=== PATIENT | male | born 1935 | race Caucasian/White ===

== ENCOUNTER → 2017-02-27 | Outpatient (CLI) | payer BC ==
[~2017-02-27] MED LIST: ALLDSR/24 PO; AMOX500C3 PO; ASPEC81 PO; FLUT0.15 NAE; IBUP-1450 PO; LISI5TAB3 PO; PRLSR20 PO
[2017-02-27 15:02] LABS: ESTIMATED AVERAGE GLUCOSE 137 mg/dl; HA1C FLAG Normal (Normal)
== END | disposition home or self-care (01) ==
LOC: C.LAB1850 12:35
PROVIDERS: ATTEND Urology
DX: R73.01 Impaired fasting glucose (principal); N40.0 Benign prostatic hyperplasia without lower urinary tract symptoms; C61 Malignant neoplasm of prostate

== ENCOUNTER → 2017-07-20 | Outpatient (CLI) | payer BC ==
[2017-07-20 16:22] LABS: BASO % 0.5 %; BASO ABS # 0.05 K/uL (0-0.2); COMPLETE YES; EOS % 2.7 %; HEMATOCRIT 44.8 % (42-52); IG% 0.6 %; LYMPH % 20.7 %; LYMPH ABS # 1.91 K/uL (1.2-3.4); MEAN CELL VOLUME 92.6 fL (80-100); MEAN CORPUSCULAR HEMOGLOBIN 31.8 pg (25-34); MEAN CORPUSCULAR HGB CONC 34.4 g/dl (32-36); MEAN PLATELET VOLUME 9.8 fL (7.4-10.4); MONO % 6.7 %; NEUT % 68.8 %; PLATELET COUNT 195 K/uL (130-400); RED BLOOD COUNT 4.84 M/uL (4.7-6.1); WHITE BLOOD COUNT 9.24 K/uL (4.8-10.8)
[2017-07-20 16:44] LABS: ALT/SGPT 21 U/L (12-78); BLOOD UREA NITROGEN 21 mg/dl (7-18); BUN/CREATININE RATIO 17.6 (10-20); CALCIUM 9.2 mg/dl (8.5-10.1); CARBON DIOXIDE 22 mmol/L (21-32); CHLORIDE 107 mmol/L (98-107); GLUCOSE 113 mg/dl (70-99); POTASSIUM 3.9 mmol/L (3.5-5.1); SODIUM 140 mmol/L (136-145)
[2017-07-20 16:55] LABS: ALB/GLOB RATIO 1.3 (0.9-2); ALKALINE PHOSPHATASE 77 U/L (45-117); AST/SGOT 16 U/L (15-37)
[2017-07-20 17:49] LABS: LYME DISEASE AB IGG NEG (NEG)
[2017-07-20 17:51] LABS: LYME DISEASE AB IGM NEG (NEG)
== END | disposition home or self-care (01) ==
LOC: C.LAB1850 15:01
PROVIDERS: ATTEND Internal Medicine Pulmonary Disease
DX: R29.898 Other symptoms and signs involving the musculoskeletal system (principal); R53.83 Other fatigue

== ENCOUNTER → 2017-10-13 | Outpatient (CLI) | payer BC ==
--- NOTE | 2017-10-13 11:08 | DIAGNOSTIC IMAGING REPORT ---
L-SPINE MIN 4 VIEWS ROUTINE CLINICAL HISTORY: Back pain and lower extremity weakness COMPARISON STUDY: 07/08/2015 FINDINGS: No acute fractures are visualized. There are progressive multilevel advanced degenerative changes with multilevel disc space narrowing and osteophyte formation. There are no significant subluxations. Prostate seed implants are visualized. IMPRESSION: Progressive advanced multilevel degenerative change. No acute fractures. Electronically signed by: Nazario Sanders M.D. 10/13/2017 11:06 AM Dictated Date/Time: 10/13/2017 11:04 AM
== END | disposition home or self-care (01) ==
LOC: C.RAD1850 10:30
PROVIDERS: ATTEND Physician Assistant Medical
DX: M51.36 Other intervertebral disc degeneration, lumbar region (principal)

== ENCOUNTER → 2017-10-28 | Outpatient (CLI) | payer BC ==
--- NOTE | 2017-10-29 06:05 | PAP/PSG TECHNICIAN REPORT ---
[facility] Farm Equipment Assembler Polysomnogram Report Study name: None Report date: 10/29/2017 Study date: 10/28/2017 Referring Physician: Rocio Escalona PA-C Name: AL SAMAYOA Interpreting Physician: Bautista Vitale M.D. Date of : 1935 Farm Equipment Assembler: Melissa Fitzgerald, PSGT. Sex: Male Age: 82 StudyType: PSG Weight: 189 lbs Height: 82 years, Height 5' 7" Neck Circum:15 inches BMI: 29.6 Medications: VERA D, PRILOSEC 20 MG, ASPIRIN 81 MG, LISINOPRIL 5 MG, METOPROLOL 25 MG, NASALIDE SPRAY. Patient History 82 YR. OLD MALE, PRESENTS WITH CHRONIC FATIGUE, HIP, BACK AND LEG PAIN.HE ALSO SNORES.ESS=16, NECK=15 INCHES. Parameters Monitored NPSG: E1-M2, E2-M1, Fp1-M2, Fp2-M1, F3-M2, F4-M2, F4-M1, C3-M2, C4-M2, C4-M1, O1-M2, O2-M2, O2-M1, T3-M2, T4-M1, P3-M2, P4-M1, CHIN1, CHIN2, HR, EKG, Legs, PFLOW, SNOR, FLOW, CFLOW, Tidal Volume, THOR, ABDO, SpO2, PLTH, CPRESS, ETCO2 Wave, ETCO2, pH Sleep Architecture Sleep Stages Time at Lights Off 11:04:05 PM STAGES Time (min.) TST (%) Time at Lights On 5:32:35 AM Wake 79.0 -- Total Recording Time (TRT) 389.50 min. N1 47.0 15 Total Sleep Period (TSP) 368.0 min. N2 196.0 63 Total Sleep Time (TST) 309.5min. N3 0.0 0 Awake Time 79.0 min. REM 66.5 21 Wake after Sleep Onset 58.5 min. Sleep Efficiency (SE) 80 % Sleep Onset Latency (FARRUKH) 20.5 min. Number of Stage 1 Shifts None Awakenings 17 Stage Changes 58 Number of REM periods 4 REM 66.5 21 REM Latency 81.5 min. NREM 243.0 79 Body Position Analysis Supine Right Left Side Prone Vertical Total Sleep Time (min.) 167.0 181.6 0.0 181.62 0.0 19.8 Total Sleep Time (%) 41% 59% 0% 59 0% N/A% Total Sleep Time REM (min.) 27.4 39.1 0.0 None 0.0 0.0 Total Sleep Time NREM (min.) 100.5 142.5 0.0 None 0.0 0.0 Intermittent Wake (min.) 39.1 19.7 0.0 None 0.0 19.8 Total Sleep Period (%) 45% None None None None None Arousals Myoclonus (PLM) * Events Count Index Events Count Index Spontaneous 90 17 Events Awake (PLMW) 0 0.0 Respiratory 7 1.4 Events Asleep w/ Arousal (PLMA) 27 5.2 PLM 27 5 Events Asleep w/o Arousal (PLMS) 367 71.1 Snoring 22 4 Total Asleep 394 76.4 Total 146 28 Total 394 61 Respiratory Analysis * CA OA MA CH H RERA Total Count 0 4 0 0 13 0 17 Index 0.0 0.8 0.0 0 2.5 0 3.3 Mean Duration 0.0 28.0 0.0 0.00 20.4 0.0 22.2 Longest Duration 0.0 31.1 0.0 0.00 0.0 0.0 31.1 Respiratory Event Summary Total Supine ~Supine Right Left Prone REM NREM Apneas Count 4 4 0 0 N/A N/A 0 4 Index 0.8 2 0 0.0 N/A N/A 0 1 Hypopneas (4% Desat) Count 13 12 1 1 N/A N/A 4 9 Index 2.5 5.6 0 0.3 N/A N/A 3.6 2.2 Apneas & All Hypopneas Count 17 16 1 1 N/A N/A 4 13 Index 3.3 8 0 0 N/A N/A 3.6 3.2 Respiratory Events (Meat Selector+All Hyp+RERA) Count 17 16 1 1 N/A N/A 4 13 Index 3.3 8 0 0.3 N/A N/A 3.6 3.2 Respiratory Related Arousal Count 7 16 0 0 N/A N/A 0 7 Index 1.4 3 0 0 N/A N/A 0 2 Snoring Analysis Supine Right Left Prone REM NREM Total Snore duration 29.5 min Snores count 342 971 N/A N/A 75 1,238 1,313 Snore mean duration 1.3 Sec Snores index 160 321 N/A N/A 67.7 305.7 254.5 TST with snoring (%) 9.5% Desaturation Event Summary: Minimum %SpO2 Event Count Mean/Min/Max Duration(sec.) Desaturation Index % Time In Bed > 90 39 32.0 / 17.3 / 60.0 6.6 93.0 86 - 90 3 19.3 / 17.3 / 22.5 6.9 6.9 81 - 85 0 N/A 0.0 0.1 76 - 80 0 N/A 0.0 0.0 71 - 75 0 N/A 0.0 0.0 66 - 70 0 N/A 0.0 0.0 61 - 65 0 N/A 0.0 0.0 56 - 60 0 N/A 0.0 0.0 51 - 55 0 N/A 0.0 0.0 < 50 0 N/A 0.0 0.0 Total REM NREM Awake <50% 0.0 min. 0.0 min. 0.0 min. 0.0 min. 51 - 60% 0.0 min. 0.0 min. 0.0 min. 0.0 min. 61 - 70% 0.0 min. 0.0 min. 0.0 min. 0.0 min. 71 - 80% 0.1 min. 0.0 min. 0.0 min. 0.1 min. 81 - 90% 26.4 min. 7.6 min. 14.0 min. 4.7 min. 91 - 100% 353.6 min. 58.9 min. 227.2 min. 67.5 min. Average 92 92 92 92 Minimum SpO2 77 87 86 77 Desaturation Event Index 6.2 10.8 6.9 0.0 # Desat. Events below 89% 7 1 6 N/A Time(%) with Saturation below 89% 0.5 0.2 0.2 0.1 Time(min.) with Saturation below 89% 1.8 0.7 0.8 0.3 Time (mins) REM (mins) NREM (mins) % of TST SpO2 Below 90% 26 5 N21 1.8 SpO2 Below 88% 3 0 0 0 Heart Rate Analysis Min (bpm) Max (bpm) Average (bpm) Awake 74 214 80 NREM 48 87 78 REM 70 94 79 Overall 48 94 78 Supplemental O2 Values Minimum O2 level: None Value Start Time End Time Farm Equipment Assembler Comments PSG Study Mr. Samayoa slept in the right, and supine positions. No cardiac arrhythmia or PLM's noted. No bruxism noted. Snoring was noted and scored as a one on a scale of 1 through 5. (0=no snoring, 5=snoring loud enough to be heard through a closed door or down the [address]) Mr. Samayoa awoke to use the restroom one time during the night. Mr. Samayoa stated, I did not sleep as well as I do when I am in my own bed. The final report will be interpreted and signed by a sleep physician. The completed physician report will then be placed in the patient medical record. Therapy (cm H2O) 0 TIB (min.) 388.5 TST (min.) 309.5 Sleep Onset (min.) 20.5 REM Onset From Sleep (min.) 81.5 Sleep Efficiency % 80 Wakefulness (%) 20 Wakefulness (min.) 79.0 NREM 1 (%) 15 NREM 1 (min.) 47.0 NREM 2 (%) 63 NREM 2 (min.) 196.0 NREM 3 (%) 0 NREM 3 (min.) 0.0 REM (%) 21 REM (min.) 66.5 # Arousals 146 Arousal Index 28 # Snore 1,313 Snore Index 254.5 AHI 3.3 AHI Supine 8 AHI Non-Supine 0 NREM AHI 3.2 REM AHI 3.6 RDI 3.3 # Obstructive Apnea 4 # Central Apnea 0 # Mixed Apnea 0 # Hypopneas 13 RERAs 0 Total Respiratory Events 17 Time Below SpO2 89% (min.) 1.5 Mean NREM SpO2 (%) 92 Mean REM SpO2 (%) 92 Mean Sleep SpO2 (%) 92 Min NREM SpO2 (%) 86 Min REM SpO2 (%) 87 Position Supine (min.) 167.0 Position Non-supine (min.) 181.6 LM Index Sleep 76.4 LM Index NREM 85.7 LM Index REM 42.4 Mean Heart Rate (bpm) 78 Min Heart Rate (bpm) 48
--- NOTE | 2017-10-29 16:12 | POLYSOMNOGRAPH REPORT ---
CLINICAL DATA: An 82-year-old male with a BMI of 29.6, referred by Rocio Escalona and myself with chronic fatigue, hip, back and leg pain and snoring. His [place] sleepiness score is 16/24. SLEEP ARCHITECTURE: Total sleep period was 368 minutes. Total sleep time was 309.5 minutes divided between grade 243 minutes of non-REM sleep and 66.5 minutes of REM sleep. Sleep onset latency was 20.5 minutes. REM latency was 81.5 minutes. Sleep efficiency was 80%. Wake after sleep onset was 58.5 minutes. Sleep consisted of stage N1 15%, stage N2 63%, and REM 21%. AROUSAL DATA: One hundred and forty six arousals were recorded for an index of 28 per hour. PERIODIC LIMB MOVEMENT DATA: Significantly elevated limb movements during sleep were noted. There were 394 limb movements during sleep noted for an index of 76.4 per hour with arousal index of 5.3 per hour. RESPIRATORY DATA: There was no evidence of clinically significant sleep apnea seen. The AHI was 3.3. There were 4 obstructive apneic episodes. The longest duration of apnea was 31.1 seconds. There were 13 hypopneic episodes with a mean duration of 20.4 seconds. OXIMETRY DATA: Transient hypoxemia was seen. Oxygen hesham was 86% during non-REM sleep. The mean saturation was 92%. Time below 88% was 3 minutes. ECHOCARDIOGRAM: Heart rate ranged from 48-94 beats per minute. No arrhythmias were noted. IT SECURITY MANAGER'S COMMENTS: The patient slept in the right and supine positions. Snoring was moderate, rated 1 on a scale of 1-5. IMPRESSION: 1. No evidence of clinically significant sleep apnea/hypopnea or sustained nocturnal hypoxemia. 2. Frequent limb movements during sleep with arousal consistent with periodic limb movement disorder/ leg pain. RECOMMENDATIONS: The patient may need to be treated for his chronic pain to relieve his symptoms at night. There was nothing to suggest CPAP or BIPAP will be of benefit. Treatment for PLMD may be considered. Clinical correlation is needed. DIEGOD
== END | disposition home or self-care (01) ==
LOC: C.NEUR 21:00
PROVIDERS: ATTEND Physician Assistant Medical
DX: R53.83 Other fatigue (principal); R06.83 Snoring

== ENCOUNTER → 2017-11-18 | Outpatient (CLI) | payer BC | END | disposition home or self-care (01) | LOC: C.LAB1850 13:24 | PROVIDERS: ATTEND Physician Assistant Medical | DX: G47.61 Periodic limb movement disorder (principal) ==

== ENCOUNTER 2017-12-24 19:37 | Observation (INO) | payer BC ==
[~2017-12-24] VITALS: Ht 170.2 cm; Wt 83.0 kg
[2017-12-24] MEDS ORDERED: SODIUM CHLORIDE 0.9% 1000ML 1,000 ML IV SCH (20:10)
--- NOTE | 2017-12-24 20:28 | DIAGNOSTIC IMAGING REPORT ---
HEAD WITHOUT CONTRAST (CT) CLINICAL HISTORY: 82 years-old Male presenting with Stroke. TECHNIQUE: Multidetector CT imaging of the head was performed without the use of intravenous contrast. IV contrast: None. A dose lowering technique was used consistent with the principles of ALARA (as low as reasonably achievable). COMPARISON: None. CT DOSE (mGy.cm): The estimated cumulative dose is 614.27 mGy.cm. FINDINGS: Textile Technologist topogram: Unremarkable. Proportional ventricular and sulcal prominence, likely age-related parenchymal volume loss. Periventricular and subcortical white matter hypoattenuation, nonspecific but likely indicative of chronic small vessel ischemic change. No mass effect or midline shift. No hemorrhage or acute territorial infarct. No extra-axial fluid collection. Paranasal sinuses and mastoid air cells clear. Calvarium intact. Bilateral [place] lenses are absent. IMPRESSION: 1. No acute intracranial abnormality. Electronically signed by: Rakesh Mckeon M.D. 12/24/2017 8:26 PM Dictated Date/Time: 12/24/2017 8:25 PM
[2017-12-24 20:37] LABS: BASO % 0.5 %; BASO ABS # 0.04 K/uL (0-0.2); EOS % 4.9 %; EOS ABS # 0.42 K/uL (0-0.5); HEMATOCRIT 44.3 % (42-52); HEMOGLOBIN 15.5 g/dL (14.0-18.0); IG# 0.06 K/uL (0.00-0.02); LYMPH % 30.7 %; LYMPH ABS # 2.63 K/uL (1.2-3.4); MEAN CELL VOLUME 91.7 fL (80-100); MEAN CORPUSCULAR HEMOGLOBIN 32.1 pg (25-34); MEAN PLATELET VOLUME 9.5 fL (7.4-10.4); MONO % 9.9 %; MONO ABS # 0.85 K/uL (0.11-0.59); NEUT % 53.3 %; NEUT ABS # 4.58 K/uL (1.4-6.5); PLATELET COUNT 171 K/uL (130-400); RED CELL DISTRIBUTION WIDTH CV 13.1 % (11.5-14.5); WHITE BLOOD COUNT 8.58 K/uL (4.8-10.8)
[2017-12-24 20:53] LABS: BLOOD UREA NITROGEN 18 mg/dl (7-18); CARBON DIOXIDE 25 mmol/L (21-32); CREATININE 1.11 mg/dl (0.60-1.40); GLUCOSE 108 mg/dl (70-99); POTASSIUM 3.9 mmol/L (3.5-5.1); SODIUM 138 mmol/L (136-145)
[2017-12-24 20:58] LABS: CKMB 2.5 ng/ml (0.5-3.6)
--- NOTE | 2017-12-24 21:04 | DIAGNOSTIC IMAGING REPORT ---
CHEST ONE VIEW PORTABLE CLINICAL HISTORY: 82 years-old Male presenting with Stroke. TECHNIQUE: Portable upright AP view of the chest was obtained. COMPARISON: 07/18/2015. FINDINGS: Left subclavian pacer with leads to the right atrium and right ventricular apex. Median sternotomy wires unchanged. Suggestion of an epicardial or coronary sinus lead. Atherosclerosis of the aortic arch. Persistent eventration of the left hemidiaphragm. No focal opacity. No large effusion or pneumothorax. Osseous structures normal. Hiatal hernia suspected. IMPRESSION: 1. No acute cardiopulmonary disease. Electronically signed by: Rakesh Mckeon M.D. 12/24/2017 9:02 PM Dictated Date/Time: 12/24/2017 9:01 PM
[2017-12-24] MEDS ORDERED: CLOPIDOGREL BISULFATE 300 MG TAB PO STA (21:06)
[2017-12-24] MEDS ORDERED: FAMOTIDINE 20 MG TAB ONE (21:17)
[2017-12-24] MEDS ORDERED: TPRSR/25 PO ×2 (21:18)
[2017-12-24] MEDS ORDERED: FRRS300 PO ×2 (21:18)
[2017-12-24] MEDS ORDERED: CETI10TA84 PO ×2 (21:18)
[2017-12-24] MEDS ORDERED: XLTOPS OPR ×2 (21:19)
[2017-12-24] MEDS ORDERED: CLOPIDOGREL BISULFATE 75 MG TAB PO ONE (21:30)
[2017-12-24] MEDS ORDERED: ALUMINUM/MAGNESIUM/SIMETH (MAALOX MAX) 30 ML UDC PO PRN (21:30)
[2017-12-24] MEDS ORDERED: PHARMACIST DISCHARGE MED REC CONSULT PRN (21:30)
[2017-12-24] MEDS ORDERED: MAGNESIUM HYDROXIDE SUSP 30 ML UDC PO PRN (21:30)
[2017-12-24] MEDS ORDERED: POLYETHYLENE (MIRALAX) 17 GM PACK PO PRN (21:30)
[2017-12-24] MEDS ORDERED: MoRPHine SULFATE 2 MG/ML CARP IV PRN (21:30)
[2017-12-24] MEDS ORDERED: ACETAMINOPHEN 325 MG TAB PO PRN (21:30)
[2017-12-24] MEDS ORDERED: ONDANSETRON INJ 2 MG/ML 2 ML VIAL IV PRN (21:30)
[2017-12-24 21:39] LABS: PTT PATIENT 26.6 SECONDS (21.0-31.0)
--- NOTE | 2017-12-24 21:48 | History and Physical ---
History & Physical Date & Time of Service: Dec 24, 2017 at 21:31 Chief Complaint: No Speech Primary Care Physician: Bautista Vitale M.D. History of Present Illness Source: patient, hospital records 82 y/o M hx HTN, HPL, AV block-pacer placement 2014, - 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 Presents with acute onset of expressive aphasia. He states that while he was unable to speak, he could clearly comprehend others. The pt states that he has some chronic numbness in his L extremities distally and impaired L dorsiflexion which are chronic and related to nerve entrapment per pt. He denies CP, SOB, fevers. He denies acute unilateral weakness or sensory loss and denies a headache or visual disturbances. He has gradually regained his speech. 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 Surgical 1) Inguinal hernia 1999 2) Cataract R 2010 3) AVR - bioprosthesis 2008 Family History Diabetes mellitus FH: cancer FH: heart disease Hypertension Social History Smoking Status: Never Smoker Marital Status: Occupational Status: employed Allergies Coded Allergies: Statins (Verified Adverse Reaction, Intermediate, GALLBLADDER PAIN, 12/24/17 ) Home Medications Scheduled Aspirin Enteric Coated (Ecotrin Or Generic *), 81 MG PO QAM Cetirizine (Zyrtec), 10 MG PO DAILY Ferrous Sulfate (Ferrous Sulfate), 325 MG PO QAM Fluticasone Propionate (Nasal) (Flonase Allergy Relief), 25 MCG KRISTEL QPM Latanoprost (Latanoprost), 1 DROP OPR HS Lisinopril (Zestril), 5 MG PO QAM Metoprolol Succinate (Metoprolol Succinate ER), 25 MG PO QAM Omeprazole (Prilosec), 2 TAB PO QAM Scheduled PRN Amoxicillin (Amoxil), 2,000 MG PO DAILY PRN for PRIOR TO DENTAL APPT. Review of Systems Constitutional: No fever, No chills, No sweats Eyes: No worsening of vision ENT: No hearing loss, No unusual epistaxis, No nasal symptoms Respiratory: No cough, No sputum, No wheezing Cardiovascular: No chest pain, No orthopnea, No PND Abdomen: No pain, No nausea, No vomiting Musculoskeletal: No joint pain Genitourinary - Male: No hematuria, No dysuria Neurologic: + problem reported (Acute expressive aphasia - chronic distal ext numbness and LLE wekaness), No memory loss Psychiatric: No depression symptoms Endocrine: No fatigue Hematologic / Lymphatic: No abnormal bleeding/bruising Integumentary: No rash Allergic / Immunologic: No environmental allergies Physical Exam Vital Signs Date Time Temp Pulse Resp B/P (MAP) Pulse Ox O2 Delivery O2 Flow Rate FiO2 12/24/17 21:00 67 19 116/85 95 Room Air 12/24/17 20:44 66 12/24/17 20:30 70 15 133/77 97 Room Air 12/24/17 20:30 65 14 149/79 96 Room Air 12/24/17 20:25 96 Room Air 12/24/17 19:46 36.4 78 18 166/6 95 Room Air General Appearance: WD/WN, no apparent distress Head: normocephalic Eyes: normal inspection ENT: normal ENT inspection, pharynx normal Neck: supple, no JVD Respiratory/Chest: chest non-tender, lungs clear, normal breath sounds Cardiovascular: regular rate, rhythm, no edema, no gallop, + systolic murmur Abdomen/GI: normal bowel sounds, non tender, soft Back: normal inspection, no CVA tenderness Extremities/Musculoskelatal: normal inspection, no calf tenderness, normal capillary refill Neurologic/Psych: ragman II-XII nml as tested, no motor/sensory deficits, alert, + pertinent finding (Speech is slightly slow - may have slight diffficulty with word finding - dorsiflexion impaired on L ) Skin: normal color, warm/dry Diagnostics Laboratory Results Results Past 24 Hours Test 12/24/17 20:13 12/24/17 20:26 12/24/17 20:29 12/24/17 21:02 Range/Units Bedside Glucose 100 70-99 mg/dl White Blood Count 8.58 4.8-10.8 K/uL Red Blood Count 4.83 4.7-6.1 M/uL Hemoglobin 15.5 14.0-18.0 g/dL Hematocrit 44.3 42-52 % Mean Corpuscular Volume 91.7 80-100 fL Mean Corpuscular Hemoglobin 32.1 25-34 pg Mean Corpuscular Hemoglobin Concent 35.0 32-36 g/dl Platelet Count 171 130-400 K/uL Mean Platelet Volume 9.5 7.4-10.4 fL Neutrophils (%) (Auto) 53.3 % Lymphocytes (%) (Auto) 30.7 % Monocytes (%) (Auto) 9.9 % Eosinophils (%) (Auto) 4.9 % Basophils (%) (Auto) 0.5 % Neutrophils # (Auto) 4.58 1.4-6.5 K/uL Lymphocytes # (Auto) 2.63 1.2-3.4 K/uL Monocytes # (Auto) 0.85 0.11-0.59 K/uL Eosinophils # (Auto) 0.42 0-0.5 K/uL Basophils # (Auto) 0.04 0-0.2 K/uL RDW Standard Deviation 44.0 36.4-46.3 fL RDW Coefficient of Variation 13.1 11.5-14.5 % Immature Granulocyte % (Auto) 0.7 % Immature Granulocyte # (Auto) 0.06 0.00-0.02 K/uL Sodium Level 138 136-145 mmol/L Potassium Level 3.9 3.5-5.1 mmol/L Chloride Level 106 98-107 mmol/L Carbon Dioxide Level 25 21-32 mmol/L Anion Gap 8.0 3-11 mmol/L Blood Urea Nitrogen 18 7-18 mg/dl Creatinine 1.11 0.60-1.40 mg/dl Est Creatinine Clear Calc Drug Dose 51.6 ml/min Estimated GFR () 70.3 Estimated GFR (Non- 60.7 BUN/Creatinine Ratio 16.2 10-20 Random Glucose 108 70-99 mg/dl Calcium Level 9.0 8.5-10.1 mg/dl Magnesium Level 2.1 1.8-2.4 mg/dl Total Creatine Kinase 81 39-308 U/L Creatine Kinase MB 2.5 0.5-3.6 ng/ml Creatine Kinase MB Ratio 3.1 0-3.0 Troponin I < 0.015 0-0.045 ng/ml Bedside Prothrombin Time INR 1.0 0.9-1.[address] head: No acute abnormalities EKG V-pacing 65 BPM Impression Assessment and Plan 82 y/o M hx HTN, HPL, AV block-pacer placement 2014, - 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 Presents with acute onset of expressive aphasia. He states that while he was unable to speak, he could clearly comprehend others. The pt states that he has some chronic numbness in his L extremities distally and impaired L dorsiflexion which are chronic and related to nerve entrapment per pt. He denies CP, SOB, fevers. He denies acute unilateral weakness or sensory loss and denies a headache or visual disturbances. He has gradually regained his speech. 1) CVA/TIA - appears to be recovering speech - assigned to telemetry with neurochecks per CVA protocol - will cont ASA and add Plavix - MRI/MRA, echo, neurology consult pending. Antihypertensives held for AM. 2) HTN - meds held as above - he is normotensive on admission so it may be reasonable to cont his B rafael AM 3) HPL - pt is statin intolerant 4) AVR - echo ordered due to history of valve replacement Full code - Heparin prophylaxis Total time for this admit including review of labs, meds, imaging, records, EKG - discussioin with pt and ER attending - 38 min Resuscitation Status VTE Prophylaxis Will order VTE Prophylaxis: Yes
[2017-12-24 22:32] VITALS: BP 155/78; PULSE 66; TEMP 36.8; O2SAT 97; Ht 170.2 cm; Wt 83.0 kg
[2017-12-24 22:45] VITALS: BP 155/75; PULSE 70; TEMP 36.8; O2SAT 96
[2017-12-24] MEDS ORDERED: D5NSS + 20MEQ KCL 1,000 ML IV SCH (23:30)
--- NOTE | 2017-12-25 00:33 | EMERGENCY ROOM VISIT NOTE ---
History Report prepared by Azael: Donavan Worthy Under the Supervision of: Dr. Raheem Lemon M.D. First contact with patient: 20:04 Chief Complaint: OTHER COMPLAINT Stated Complaint: NO SPEECH History of Present Illness The patient is an 82 year old male who presents to the Emergency Room with complaints of sudden inability to speak starting around 1900 tonight. The patient states that he was able to understand people around him, though he was unable to get any words out and was mumbling. He notes that it is getting better , and he can talk slowly. The patient denies any history of TIA and stroke. The patient has a history of a pacemaker and valve replacement, and he is not on any blood thinners other than a baby aspirin. He additionally notes that he has had numbness in his left hand and left foot for the past few months, and he has spinal stenosis. He also notes that he is unable to dorsiflex his left foot as much as the right foot which is chronic and likely secondary to spinal stenosis. His only new neurologic complaint today is his difficulty speaking. Source of History: patient Onset: 1899 Position: other (global) Quality: other (inability to speak) Timing: other (sudden) Associated Symptoms: No headache Note: Associated symptoms: Able to understand words though unable to get words out. Review of Systems See HPI for pertinent positives & negatives. A total of 10 systems reviewed and were otherwise negative. Past Medical & Surgical Medical Problems: (1) Aphasia (2) Asthma (3) CVA (cerebral vascular accident) (4) Pacemaker (5) Prostate cancer (6) Skin cancer (7) Stomach problems Family History Diabetes mellitus FH: cancer FH: heart disease Hypertension Social History Smoking Status: Never Smoker Marital Status: Housing Status: lives with family Occupation Status: employed Current/Historical Medications Scheduled Aspirin Enteric Coated (Ecotrin Or Generic *), 81 MG PO QAM Cetirizine (Zyrtec), 10 MG PO DAILY Ferrous Sulfate (Ferrous Sulfate), 325 MG PO QAM Fluticasone Propionate (Nasal) (Flonase Allergy Relief), 25 MCG KRISTEL QPM Latanoprost (Latanoprost), 1 DROP OPR HS Lisinopril (Zestril), 5 MG PO QAM Metoprolol Succinate (Metoprolol Succinate ER), 25 MG PO QAM Omeprazole (Prilosec), 2 TAB PO QAM Scheduled PRN Amoxicillin (Amoxil), 2,000 MG PO DAILY PRN for PRIOR TO DENTAL APPT. Allergies Coded Allergies: Statins (Verified Adverse Reaction, Intermediate, GALLBLADDER PAIN, 12/24/17 ) Physical Exam Vital Signs Date Time Temp Pulse Resp B/P (MAP) Pulse Ox O2 Delivery O2 Flow Rate FiO2 12/24/17 21:16 61 19 146/78 96 Room Air 12/24/17 21:00 67 19 116/85 95 Room Air 12/24/17 20:50 65 14 149/79 96 Room Air 12/24/17 20:44 66 12/24/17 20:30 70 15 133/77 97 Room Air 12/24/17 20:25 96 Room Air 12/24/17 19:46 36.4 78 18 166/6 95 Room Air Physical Exam Constitutional: Vital signs reviewed. Eyes: Pupils are equal round reactive to light. Conjunctiva are noninjected. ENT: Pharynx is clear without erythema or exudate. Mucous membranes are moist. Neck supple without meningeal signs. Respiratory: Clear to auscultation bilaterally. Breath sounds are equal bilaterally. Cardiovascular: Regular rate and rhythm. No rubs or gallops. GI: Soft, nondistended and nontender. Bowel sounds are present. Musculoskeletal: No peripheral edema. No lower extremity tenderness. Integumentary: No cyanosis. Neurological: The patient is awake and alert. Cranial nerves II-XII are intact. Motor is 5 out of 5 all extremities, 4/5 strength with dorsiflexion in the left foot with diminished sensation in the left foot. Sensation is intact to light touch all extremities except the left foot as described above. Mild expressive aphasia. No pronator drift. No limb ataxia. NIH score of 2 Psychiatric: Normal affect. Medical Decision & Procedures ER Provider Diagnostic Interpretation: Radiology results as stated below per my review and the radiologist's interpretation: HEAD WITHOUT CONTRAST (CT) CLINICAL HISTORY: 82 years-old Male presenting with Stroke. TECHNIQUE: Multidetector CT imaging of the head was performed without the use of intravenous contrast. IV contrast: None. A dose lowering technique was used consistent with the principles of ALARA (as low as reasonably achievable). COMPARISON: None. CT DOSE (mGy.cm): The estimated cumulative dose is 614.27 mGy.cm. FINDINGS: Aba Tutor topogram: Unremarkable. Proportional ventricular and sulcal prominence, likely age-related parenchymal volume loss. Periventricular and subcortical white matter hypoattenuation, nonspecific but likely indicative of chronic small vessel ischemic change. No mass effect or midline shift. No hemorrhage or acute territorial infarct. No extra-axial fluid collection. Paranasal sinuses and mastoid air cells clear. Calvarium intact. Bilateral [place] lenses are absent. IMPRESSION: 1. No acute intracranial abnormality. Electronically signed by: Rakesh Mckeon M.D. 12/24/2017 8:26 PM Dictated Date/Time: 12/24/2017 8:25 PM CHEST ONE VIEW PORTABLE CLINICAL HISTORY: 82 years-old Male presenting with Stroke. TECHNIQUE: Portable upright AP view of the chest was obtained. COMPARISON: 07/18/2015. FINDINGS: Left subclavian pacer with leads to the right atrium and right ventricular apex. Median sternotomy wires unchanged. Suggestion of an epicardial or coronary sinus lead. Atherosclerosis of the aortic arch. Persistent eventration of the left hemidiaphragm. No focal opacity. No large effusion or pneumothorax. Osseous structures normal. Hiatal hernia suspected. IMPRESSION: 1. No acute cardiopulmonary disease. Electronically signed by: Rakesh Mckeon M.D. 12/24/2017 9:02 PM Dictated Date/Time: 12/24/2017 9:01 PM Laboratory Results 12/24/17 20:26 Red Blood Count 4.83, Mean Corpuscular Volume 91.7, Mean Corpuscular Hemoglobin 32.1, Mean Corpuscular Hemoglobin Concent 35.0, Mean Platelet Volume 9.5, Neutrophils (%) (Auto) 53.3, Lymphocytes (%) (Auto) 30.7, Monocytes (%) (Auto) 9.9, Eosinophils (%) (Auto) 4.9, Basophils (%) (Auto) 0.5, Neutrophils # (Auto) 4.58, Lymphocytes # (Auto) 2.63, Monocytes # (Auto) 0.85, Eosinophils # (Auto) 0.42, Basophils # (Auto) 0.04 12/24/17 20:26 Test 12/24/17 20:13 12/24/17 20:26 12/24/17 20:29 12/24/17 21:02 Bedside Glucose 100 mg/dl (70-99) White Blood Count 8.58 K/uL (4.8-10.8) Red Blood Count 4.83 M/uL (4.7-6.1) Hemoglobin 15.5 g/dL (14.0-18.0) Hematocrit 44.3 % (42-52) Mean Corpuscular Volume 91.7 fL (80-100) Mean Corpuscular Hemoglobin 32.1 pg (25-34) Mean Corpuscular Hemoglobin Concent 35.0 g/dl (32-36) Platelet Count 171 K/uL (130-400) Mean Platelet Volume 9.5 fL (7.4-10.4) Neutrophils (%) (Auto) 53.3 % Lymphocytes (%) (Auto) 30.7 % Monocytes (%) (Auto) 9.9 % Eosinophils (%) (Auto) 4.9 % Basophils (%) (Auto) 0.5 % Neutrophils # (Auto) 4.58 K/uL (1.4-6.5) Lymphocytes # (Auto) 2.63 K/uL (1.2-3.4) Monocytes # (Auto) 0.85 K/uL (0.11-0.59) Eosinophils # (Auto) 0.42 K/uL (0-0.5) Basophils # (Auto) 0.04 K/uL (0-0.2) RDW Standard Deviation 44.0 fL (36.4-46.3) RDW Coefficient of Variation 13.1 % (11.5-14.5) Immature Granulocyte % (Auto) 0.7 % Immature Granulocyte # (Auto) 0.06 K/uL (0.00-0.02) Anion Gap 8.0 mmol/L (3-11) Est Creatinine Clear Calc Drug Dose 51.6 ml/min Estimated GFR () 70.3 Estimated GFR (Non- 60.7 BUN/Creatinine Ratio 16.2 (10-20) Calcium Level 9.0 mg/dl (8.5-10.1) Magnesium Level 2.1 mg/dl (1.8-2.4) Total Creatine Kinase 81 U/L (39-308) Creatine Kinase MB 2.5 ng/ml (0.5-3.6) Creatine Kinase MB Ratio 3.1 (0-3.0) Troponin I < 0.015 ng/ml (0-0.045) Bedside Prothrombin Time INR 1.0 (0.9-1.1) Prothrombin Time 10.5 SECONDS (9.0-12.0) Prothromb Time International Ratio 1.0 (0.9-1.1) Activated Partial Thromboplast Time 26.6 SECONDS (21.0-31.0) Partial Thromboplastin Ratio 1.0 Laboratory results as reviewed by me. Medications Administered Medications (Trade) Dose Ordered Sig/Alayna Route Start Time Stop Time Status Last Admin Dose Admin Sodium Chloride 1,000 ml @ 50 mls/hr Q20H IV 12/24/17 20:10 12/24/17 23:14 DC 12/24/17 20:48 50 MLS/HR Clopidogrel Bisulfate (plAVix TAB) 300 mg NOW STAT PO 12/24/17 21:06 12/24/17 21:07 DC 12/24/17 21:24 300 MG Famotidine (Pepcid Tab) 20 mg STK-MED ONCE .ROUTE 12/24/17 21:17 12/24/17 21:18 DC 12/24/17 21:24 20 MG ECG Per My Interpretation Indication: other (stroke symptoms) Rate (beats per minute): 65 Rhythm: other (Atrial sensed ventricularly paced) Findings: other (QRS is 194. R [place] is -69) ED Course 2003: The patient was evaluated in room C12. A complete history and physical exam was performed. 2009: Sodium Chloride 1000 ml @ 50 mls/hr IV 2017: I reevaluated the patient, and I discussed the risks and benefits of TPA. He is off to CT scan. 2026: I discussed the patient's case with Dr. Teddy Hester Stroke Neurology, and he is going to evaluate the patient. 2039: The patient is having mild to moderate persistent speech deficits. I again addressed the TPA, and he will consider it depending on what Dr. Espinal says. 2105: The patient's speech has improved, and Dr. Espinal recommended not giving IV TPA due to his significant rapid improvement. He recommended Plavix 300 and hospitalization for further work up. I ordered Plavix 300mg PO. 2116: Pepcid Tab 20mg PO 2135: I discussed the patient's case with Dr. Jay, and he talked to Dr. Macie Braswell [facility] Hospitalist. They will evaluate the patient for further management. Medical Decision This is an 82-year-old male who presents with difficulty speaking. Differential diagnosis includes expressive aphasia, CVA, TIA, intracranial hemorrhage, intracranial mass, metabolic derangement. I did perform a limited focused review of portions of the patient's old chart on the electronic medical record. The patient has had no recent pertinent visits to this hospital. I did evaluate the patient as noted above. After specimen I immediately called a stroke alert. IV access was established. The patient was placed on a continuous hospital monitor. I did order and personally review the patient's 12- lead EKG and chest x-ray as described above. I did order and review the patient 's blood work as noted in the electronic medical record. I did order a stat CT of the head. I did review the images myself as well as the radiology report as described above. No acute intracranial abnormality was noted. I did reassess the patient multiple times. His symptoms seem to be improving progressively. He had a significant improvement since the initiation of the symptoms where he could only mumble. I did discuss risks and benefits of IV TPA with the patient and his family. I did discuss the case with the [facility] neurologist on-call. He did evaluate the patient via telemedicine. He agreed that IV TPA was not indicated due to his very rapidly improvement of his symptoms. He did recommend IV fluids and Plavix. I did treat him with normal saline IV and Plavix 300 mg. I did discuss case with the hospitalist service and casework supervisor. Medication Reconcilliation Current Medication List: was personally reviewed by me Blood Pressure Screening Patient's blood pressure: Elevated blood pressure Monitored by the hospitalist. Consults Time Called: 2022 Consulting Physician: Dr. Espinal Returned Call: 2026 I discussed the patient's case with Dr. Espinal - [facility], and he is going to evaluate the patient. Additional Consults: Time Called: 2105 Consulted Physician: Dr. Jay Returned Call: 2135 Additional Comments: I discussed the patient's case with Dr. Jay, and he talked to Dr. Macie Braswell [facility] Hospitalist. They will evaluate the patient for further management. Impression Primary Impression: Expressive aphasia Scribe Attestation The scribe's documentation has been prepared under my direct and personally reviewed by me in its entirety. I confirm that the note above accurately reflects all work, treatment, procedures, and medical decision making performed by me. Departure Information Dispostion Being Evaluated By Hospitalist Referrals Bautista Vitale M.D. (PCP) Patient Instructions My [facility] Stroke History Time Last Known Well 1900 Stroke t-PA Criteria Reviewed Does NOT meet criteria for t-PA Reason t-PA Not Given Treatment not indicated Strict Exclusion Criteria Complete resolution of symptoms (NI (Near resolution of symptoms)
[2017-12-25] MEDS ORDERED: OPTIRAY 320 IV PRN (01:15)
[2017-12-25] MEDS ORDERED: IV FLUIDS COMPLETED PRN (01:45)
[2017-12-25 02:08] LABS: ISTAT IONIZED CALCIUM 1.13 mmol/l (1.12-1.32); ISTAT POTASSIUM 3.9 mEq/L (3.3-5.0)
[2017-12-25 04:46] VITALS: BP 129/62; PULSE 60; TEMP 36.7; O2SAT 95
[2017-12-25 06:07] LABS: BASO % 0.7 %; BASO ABS # 0.05 K/uL (0-0.2); EOS % 6.5 %; EOS ABS # 0.45 K/uL (0-0.5); HEMATOCRIT 40.9 % (42-52); HEMOGLOBIN 14.2 g/dL (14.0-18.0); IG# 0.04 K/uL (0.00-0.02); LYMPH % 29.8 %; LYMPH ABS # 2.06 K/uL (1.2-3.4); MEAN CELL VOLUME 91.7 fL (80-100); MEAN CORPUSCULAR HEMOGLOBIN 31.8 pg (25-34); MEAN CORPUSCULAR HGB CONC 34.7 g/dl (32-36); MEAN PLATELET VOLUME 9.3 fL (7.4-10.4); MONO % 8.8 %; MONO ABS # 0.61 K/uL (0.11-0.59); NEUT % 53.6 %; NEUT ABS # 3.71 K/uL (1.4-6.5); PLATELET COUNT 163 K/uL (130-400); RED CELL DISTRIBUTION WIDTH CV 13.3 % (11.5-14.5); RED CELL DISTRIBUTION WIDTH SD 44.1 fL (36.4-46.3); WHITE BLOOD COUNT 6.92 K/uL (4.8-10.8)
--- NOTE | 2017-12-25 06:39 | DIAGNOSTIC IMAGING REPORT ---
HEAD ANGIO WITH CONTRAST CLINICAL HISTORY: Mental status change TECHNIQUE: Transaxial acquisition with multi axial reformatted images. COMPARISON STUDY: None FINDINGS: All major intracranial vasculature is unremarkable. No major stenotic or aneurysmal process. All major structures the anterior middle and posterior cerebral circulation are intact. Moderate atelectatic changes present. IMPRESSION: 1. Moderate atherosclerotic change. 2. No evidence for a major stenotic or aneurysmal process. The above report was generated using voice recognition software. It may contain grammatical, syntax or spelling errors. Electronically signed by: Efren Oneill M.D. 12/25/2017 6:38 AM Dictated Date/Time: 12/25/2017 6:37 AM
[2017-12-25 06:41] LABS: CALCIUM 8.3 mg/dl (8.5-10.1); CREATININE 1.02 mg/dl (0.60-1.40); POTASSIUM 3.8 mmol/L (3.5-5.1)
[2017-12-25 06:59] LABS: HEMOGLOBIN A1C 6.2 % (4.5-5.6)
[2017-12-25 07:21] VITALS: BP 124/71; PULSE 66; TEMP 36.8; O2SAT 93
--- NOTE | 2017-12-25 07:21 | DIAGNOSTIC IMAGING REPORT ---
CAROTID ARTERY ULTRASOUND CLINICAL HISTORY: Cerebrovascular accident. COMPARISON STUDY: None. TECHNIQUE: Real-time, grayscale, and color Doppler sonography of the carotid and vertebral arteries was performed. Images were viewed in the transverse and longitudinal planes. FINDINGS: There is mild atherosclerotic plaque. Velocity measurements are listed below. COMMON CAROTID PEAK SYSTOLIC VELOCITY (CM/S): RIGHT 84 LEFT 92 ICA PEAK SYSTOLIC VELOCITY (CM/S): RIGHT 81 LEFT 100 Systolic ratios between the internal to common carotid arteries are normal. Antegrade flow is seen in the vertebral arteries. The external carotid arteries are patent. Blood pressure could not be obtained in this patient due to limb restriction. Incidental note is made of several thyroid nodules within the right lobe. These were closely apposed. IMPRESSION: No evidence of a hemodynamically significant stenosis. Electronically signed by: Vinny Lebron M.D. 12/25/2017 7:20 AM Dictated Date/Time: 12/25/2017 7:16 AM
--- NOTE | 2017-12-25 07:30 | DIAGNOSTIC IMAGING REPORT ---
CT ANGIOGRAPHY OF THE NECK WITH CONTRAST CLINICAL HISTORY: Cerebrovascular accident. COMPARISON STUDY: No previous studies for comparison. Technique: CT angiography of the carotid and vertebral arteries was obtained using [employer] 320 IV and 3D reconstruction on an independent workstation. NASCET criteria was utilized. A dose lowering technique was utilized adhering to the principles of ALARA. CT DOSE: 556.94 mGy.cm Findings: There is no significant stenosis within the bilateral common carotid or internal carotid arteries. There is mild plaque. There is no dissection within these vessels. The left vertebral artery is dominant and patent. The right vertebral artery is somewhat diminutive but patent. There is no dissection within the bilateral vertebral arteries. The CTA of the head will be reported separately. The lung apices are clear. Several right lobe thyroid nodules are noted, including a 2 cm right lobe nodule. IMPRESSION: No significant stenosis within the bilateral common carotid or internal carotid arteries. Mild atherosclerotic plaque. No dissection. Electronically signed by: Vinny Lebron M.D. 12/25/2017 7:29 AM Dictated Date/Time: 12/25/2017 7:20 AM
[2017-12-25] MEDS: HEPARIN SOD 5000 UNIT/0.5 ML CARP SQ SCH ×2 (07:49→13:34)
[2017-12-25] MEDS ORDERED: CETIRIZINE HCL 10 MG TAB PO SCH (09:00)
[2017-12-25] MEDS ORDERED: ASPIRIN 81 MG ECTAB PO SCH ×2 (09:00)
[2017-12-25] MEDS ORDERED: CLOPIDOGREL BISULFATE 75 MG TAB PO SCH (09:00)
[2017-12-25] MEDS ORDERED: METOPROLOL SUCC 25MG EXT REL TAB PO SCH (09:00)
--- NOTE | 2017-12-25 10:30 | Neurology Consultation ---
Neurology Consultation Date of Consultation: Dec 25, 2017. Attending Physician: Sonu Quijano M.D. Primary Care Physician: Bautista Vitale M.D. Reason for Consultation: Patient is an 82-year-old, was asked to see the request of Dr. Quijano, for neurologic consultation regarding TIA versus stroke. History of Present Illness Source: patient, caregiver, clinic records, hospital records This patient has a longstanding cardiac history with coronary artery disease, nonischemic cardiomyopathy, aortic valve replacement in 2008 (bioprosthetic valve), and Mobitz type 2 block requiring pacemaker in 2014. There is also a history of atrial fibrillation in the past. He is followed closely by Cardiology. He takes a baby aspirin tablet daily, for years This patient does not have any history of migraines or stroke in the past. He denies hypertension or diabetes. He does have some history of dyslipidemia but he cannot tolerate statins (significant side effects) I saw this patient in July of 2017 for an EMG and nerve conduction study of his legs. He had a mild underlying polyneuropathy and mild, bilateral L5 radiculopathy. Following this, he went to see Dr. Butterfield, chiropractor, with helped his back and legs considerably. He really does not have back pain so much anymore and he has a little bit of residual weakness and numbness in the left foot. This affects his gait and he limps some. Patient was in his usual state of health yesterday, December 24. He had naps some in the afternoon, got up around 4 in the afternoon and then did his usual exercises to about 5 o'clock. He was at his computer to about 7 o'clock in the evening. He then got up to go with his and watch the news when he had the sudden onset of decreased ability to get words out. He knew what he wanted to say he could not form words. He would mumble or makes sounds. He was perfectly aware of what was going on and had no confusion or memory problems. He had no vision issues of a new nature and had no swallowing problems. He had no chest pain or palpitations, lightheadedness or dizziness, or any new weakness, numbness, or pain in the limbs. He arrived to the emergency room December 24 at 1946 hours with a temperature of 36.4, pulse 78, respiratory rate 18, and blood pressure 166/66. Evaluation revealed that he had some mild expressive aphasia. He also had left foot weakness and numbness, but (again) this is old. CT scan of the head was unremarkable. Chest x-ray was unremarkable. His symptoms improved considerably and by 1-2 hours (from the onset of symptoms ) his speech problem resolved. TPA was considered but not given because of his rapidly improving symptoms. CT angiography of the head neck were unremarkable with no significant stenoses. Carotid ultrasound was unremarkable. CBC, Chem profile, CK, lipid profile all were unremarkable. This morning the patient feels that he may have some slightly slurred speech but he has no new symptoms and feels quite back to baseline. He has no pain or headache. 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 Past Medical/Surgical History Medical Problems: (1) Expressive aphasia Status: Acute Coronary artery disease History of atrial fibrillation in the past Post pacemaker installed 2014 for Mobitz type 2 block Nonischemic cardiomyopathy History of asthma History of prostate cancer History of dyslipidemia and statin intolerance. Post aortic valve replacement in 2008 with bioprosthetic valve Inguinal hernia repair 1999 Cataract surgery bilaterally 2010 Remote history of nasal septal defect repair Family History Mother in her late 60s of liver disease. Father age 70 of colon cancer Social History The patient never used tobacco products. He has had various consumption of alcohol over time but currently has 1 glass of wine per day. 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 Smoking Status: Never smoker Smokeless Tobacco Use: No Alcohol Use: Drug Use: none Marital Status: Housing Status: lives with family Occupation Status: retired Allergies Coded Allergies: Statins (Verified Adverse Reaction, Intermediate, GALLBLADDER PAIN, 12/24/17 ) Current Inpatient Medications Current Inpatient Medications Medications (Trade) Dose Ordered Sig/Alayna Route Start Time Stop Time Status Last Admin Dose Admin Clopidogrel Bisulfate (plAVix TAB) 75 mg QAM PO 12/25/17 09:00 01/24/18 08:59 12/25/17 07:48 75 MG Miscellaneous Information (Pharmacist Discharge Med Rec Consult) 1 ea UD PRN N/A 12/24/17 21:30 01/23/18 21:29 Heparin Sodium (Porcine) (Heparin Sq 5000 Unit/0.5ml) 5,000 unit Q8H SQ 12/25/17 06:00 01/24/18 05:59 12/25/17 07:49 5,000 UNIT Acetaminophen (Tylenol Tab) 650 mg Q4H PRN PO 12/24/17 21:30 01/23/18 21:29 Al Hydrox/Mg Hydrox/Simethicone (Maalox Max Susp) 15 ml Q4H PRN PO 12/24/17 21:30 01/23/18 21:29 Magnesium Hydroxide (Milk Of Magnesia Susp) 30 ml Q12H PRN PO 12/24/17 21:30 01/23/18 21:29 Ondansetron HCl (Zofran Inj) 4 mg Q6H PRN IV 12/24/17 21:30 01/23/18 21:29 Morphine Sulfate (MoRPHine SULFATE INJ) 2 mg Q30M PRN IV 12/24/17 21:30 01/07/18 21:29 Polyethylene (Miralax Powder Packet) 17 gm DAILY PRN PO 12/24/17 21:30 01/23/18 21:29 Aspirin (Ecotrin Tab) 81 mg QAM PO 12/25/17 09:00 01/24/18 08:59 12/25/17 07:50 81 MG Cetirizine HCl (zyrTEC TAB) 10 mg DAILY PO 12/25/17 09:00 01/24/18 08:59 12/25/17 07:50 10 MG Latanoprost (Xalatan Oph Soln) 1 drops HS OPR 12/25/17 21:00 01/24/18 20:59 Metoprolol Succinate (Toprol Xl Tab) 25 mg QAM PO 12/25/17 09:00 01/24/18 08:59 12/25/17 07:50 25 MG Non-Formulary Medication (Omeprazole (Prilosec)) 2 tab QAM PO 12/25/17 09:00 01/24/18 08:59 UNV Potassium Chloride/Dextrose/ Sod Cl 1,000 ml @ 80 mls/hr [id number] IV 12/24/17 23:30 12/25/17 11:59 12/25/17 00:03 80 MLS/HR Ioversol (Optiray 320) 100 ml UD PRN IV 12/25/17 01:15 12/29/17 01:14 Miscellaneous (Iv Fluids Completed) 1 ea PRN PRN N/A 12/25/17 01:45 12/25/18 01:44 Review of Systems Constitutional: + weakness, No fever, No fatigue Eyes: No worsening of vision, No diplopia ENT: + hearing loss, No tinnitus Respiratory: No cough, No shortness of breath Cardiovascular: No chest pain Abdomen: No pain, No nausea Musculoskeletal: No joint pain, No muscle pain Genitourinary - Male: + urinary incontinence, No dysuria Neurologic: + weakness, + numbness/tingling, + balance problems, No memory loss Psychiatric: No depression symptoms Endocrine: No fatigue Hematologic / Lymphatic: + abnormal bleeding/bruising Integumentary: No rash Allergic / Immunologic: No hives Physical Exam Vital Signs (Past 24 Hrs): Date Time Temp Pulse Resp B/P (MAP) Pulse Ox O2 Delivery O2 Flow Rate FiO2 12/25/17 08:00 Room Air 12/25/17 07:21 36.8 66 17 124/71 (88) 93 Room Air 12/25/17 04:46 36.7 60 17 129/62 (84) 95 Room Air 12/25/17 04:00 Room Air 12/25/17 00:00 Room Air 12/24/17 22:45 36.8 70 18 155/75 (101) 96 Room Air 12/24/17 22:32 36.8 66 20 155/78 97 Room Air 12/24/17 22:02 67 14 175/77 97 12/24/17 21:36 62 12 152/74 95 Room Air 12/24/17 21:16 61 19 146/78 96 Room Air 12/24/17 21:00 67 19 116/85 95 Room Air 12/24/17 20:50 65 14 149/79 96 Room Air 12/24/17 20:44 66 12/24/17 20:30 70 15 133/77 97 Room Air 12/24/17 20:25 96 Room Air 12/24/17 19:46 36.4 78 18 166/6 95 Room Air Patient is right-handed. The patient is awake and alert. Speech is normal without aphasia or dysarthria. Mentation and thought processes are intact with orientation and normal fund of knowledge. Mood and affect are normal and appropriate. Appearance and grooming are normal. Long and short-term memory seem intact to conversation. The disc is difficult to visualize on the right but the left seem sharp. Pupils are 3mm bilaterally and reactive to light. Extraocular eye muscles are intact without nystagmus. Visual acuity and visual hargrove seem normal grossly to confrontation in the left eye. He cannot see out of his right eye. There are no deficits to sensation of the face bilaterally. Corneal reflexes are positive bilaterally. Facial strength and symmetry is normal bilaterally. Hearing seems mildly decreased bilaterally. Palate moves well without asymmetry. There is normal sternocleidomastoid and trapezius strength bilaterally. Tongue is midline with good strength bilaterally. Neck is with full range of motion without discomfort. There are no cervical bruits. There are no cranial or ocular bruits. Heart is without murmur. Cervical, thoracic, and lumbar spine are nontender to palpation. Gait is cautious and he limps because of his left leg. Stance with eyes open is reasonable and he sways with eyes closed With outstretched arms there is no drift. There are no resting, postural, or action tremors. There is no ataxia with [id number] testing. There is good facility in the hands. There are no abnormal involuntary movements noted. 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 Motor strength is 5/5 diffusely in the legs bilaterally including hip flexors, quadriceps, hamstring, gastrocnemius, tibialis posterior, and peroneii muscles bilaterally. The right tibialis anterior is 5/5 in the left is 4/5. Toe extensors are 5/5 on the right and 4/5 on the left. there is good bulk in the extensor digitorum brevis muscle bilaterally. The limbs have good tone without rigidity or spasticity, and there is no atrophy noted. Muscle bulk is normal, there is no tenderness, no myotonia noted to percussion, and no fasciculations seen. Sensory examination is intact to pin and touch throughout all four limbs, except for some decreased sensation of the dorsum of the left foot Reflexes are 1/4 in the biceps, triceps, brachioradialis, and quadriceps tendons bilaterally. Achilles tendon reflexes are absent bilaterally. Toes are downgoing with plantar stimulation bilaterally. Peripheral pulses are present and of normal quality distally in all four limbs. There is no peripheral edema noted. Laboratory Results Past 24 Hours: 12/25/17 05:30 Red Blood Count 4.46, Mean Corpuscular Volume 91.7, Mean Corpuscular Hemoglobin 31.8, Mean Corpuscular Hemoglobin Concent 34.7, Mean Platelet Volume 9.3, Neutrophils (%) (Auto) 53.6, Lymphocytes (%) (Auto) 29.8, Monocytes (%) (Auto) 8.8, Eosinophils (%) (Auto) 6.5, Basophils (%) (Auto) 0.7, Neutrophils # (Auto) 3.71, Lymphocytes # (Auto) 2.06, Monocytes # (Auto) 0.61, Eosinophils # (Auto) 0.45, Basophils # (Auto) 0.05 12/25/17 05:30 Test 12/24/17 20:26 12/24/17 20:29 12/24/17 20:32 12/24/17 21:02 Estimated Average Glucose 131 mg/dl Hemoglobin A1c 6.2 % (4.5-5.6) Magnesium Level 2.1 mg/dl (1.8-2.4) Total Creatine Kinase 81 U/L (39-308) Creatine Kinase MB 2.5 ng/ml (0.5-3.6) Creatine Kinase MB Ratio 3.1 (0-3.0) Troponin I < 0.015 ng/ml (0-0.045) Bedside Prothrombin Time INR 1.0 (0.9-1.1) Bedside Hemoglobin 15.0 g/dl (14.0-18.0) Bedside Hematocrit 44 % (42-52) Bedside Sodium 140 mEq/L (135-144) Bedside Potassium 3.9 mEq/L (3.3-5.0) Bedside Chloride 102 mEq/L (101-112) Bedside Total CO2 24 mEq/l (24-31) Bedside Blood Urea Nitrogen 20 mg/dl (7-18) Bedside Creatinine 1.0 mg/dl (0.6-1.3) Bedside Glucose (other) 112 mg/dl (70-99) Bedside Ionized Calcium (Ofelia) 1.13 mmol/l (1.12-1.32) Prothrombin Time 10.5 SECONDS (9.0-12.0) Prothromb Time International Ratio 1.0 (0.9-1.1) Activated Partial Thromboplast Time 26.6 SECONDS (21.0-31.0) Partial Thromboplastin Ratio 1.0 Test 12/25/17 05:30 12/25/17 07:38 White Blood Count 6.92 K/uL (4.8-10.8) Red Blood Count 4.46 M/uL (4.7-6.1) Hemoglobin 14.2 g/dL (14.0-18.0) Hematocrit 40.9 % (42-52) Mean Corpuscular Volume 91.7 fL (80-100) Mean Corpuscular Hemoglobin 31.8 pg (25-34) Mean Corpuscular Hemoglobin Concent 34.7 g/dl (32-36) Platelet Count 163 K/uL (130-400) Mean Platelet Volume 9.3 fL (7.4-10.4) Neutrophils (%) (Auto) 53.6 % Lymphocytes (%) (Auto) 29.8 % Monocytes (%) (Auto) 8.8 % Eosinophils (%) (Auto) 6.5 % Basophils (%) (Auto) 0.7 % Neutrophils # (Auto) 3.71 K/uL (1.4-6.5) Lymphocytes # (Auto) 2.06 K/uL (1.2-3.4) Monocytes # (Auto) 0.61 K/uL (0.11-0.59) Eosinophils # (Auto) 0.45 K/uL (0-0.5) Basophils # (Auto) 0.05 K/uL (0-0.2) RDW Standard Deviation 44.1 fL (36.4-46.3) RDW Coefficient of Variation 13.3 % (11.5-14.5) Immature Granulocyte % (Auto) 0.6 % Immature Granulocyte # (Auto) 0.04 K/uL (0.00-0.02) Anion Gap 7.0 mmol/L (3-11) Est Creatinine Clear Calc Drug Dose 55.6 ml/min Estimated GFR () 77.9 Estimated GFR (Non- 67.2 BUN/Creatinine Ratio 17.3 (10-20) Calcium Level 8.3 mg/dl (8.5-10.1) Triglycerides Level 74 mg/dl (0-150) Cholesterol Level 143 mg/dl (0-200) HDL Cholesterol 35 mg/dl LDL Cholesterol, Calculated 93 mg/dl VLDL Cholesterol, Calculated 15 mg/dl Cholesterol/HDL Ratio 4.1 Bedside Glucose 115 mg/dl (70-99) Impression 1. Acute onset expressive aphasia December 24 resolved by 1-2 hours. This is most consistent with a TIA since he does not have any neurologic deficits currently and is any ache stroke scale is 0 (the very mild left foot weakness and numbness is consistent with his old left L5 radiculopathy). Although an embolus cannot be excluded (cardiac valve replacement and history of cardiac dysrhythmia) I suspect an ischemic event. MRI of the brain cannot be obtained because of his pacemaker, which is not MRI compatible. 2. Left foot weakness and numbness. This is consistent with his left L5 radiculopathy, noted by EMG in July of 2017. 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 3. Generalized polyneuropathy of uncertain etiology seen by EMG July 2017. This is stable. Plan 1. Awaiting echocardiogram results. 2. If we can get an MRI I would like 1, although I understand that his pacemaker is not MRI compatible. 3. Otherwise I see no need for additional testing at this time. He is back to his baseline clinically. 4. Agree with 81 milligram aspirin +70 5 milligrams clopidogrel daily for at least 2-3 months. After this, discontinue the aspirin and keep clopidogrel alone (if okay with Cardiology also) Otherwise, please contact me if I can be of further assistance on this case. I spent a total of 60 minutes with this case including records review discussion with clinicians and staff and direct patient evaluation.
[2017-12-25 11:05] VITALS: BP 137/76; PULSE 64; O2SAT 95
[2017-12-25] MEDS ORDERED: PANTOprazole SOD 40 MG TAB PO SCH (11:36)
[2017-12-25 11:38] VITALS: BP 118/65; PULSE 66; TEMP 36.7; O2SAT 97
[2017-12-25] MEDS ORDERED: PLV75 PO ×2 (14:37)
--- NOTE | 2017-12-25 14:42 | Discharge Instructions ---
Discharge Instructions Date of Service Dec 25, 2017. Admission Reason for Admission: Aphasia, Cva Discharge Discharge Diagnosis / Problem: Transient Ischemic Attack Discharge Goals Goal(s): Decrease discomfort, Improve function Activity Recommendations Activity Limitations: resume your previous activity . Instructions / Follow-Up Instructions / Follow-Up Followup in about 1-2 weeks with PCP. Continue on 81 milligram aspirin with 75 milligrams clopidogrel daily for at least 2-3 months. After this, discontinue the aspirin and keep clopidogrel alone (if okay with by PCP) Current Hospital Diet Patient's current hospital diet: AHA Diet (Heart Healthy) Discharge Diet Recommended Diet: AHA Diet (Heart Healthy) Pending Studies Studies pending at discharge: yes List of pending studies: Echocardiogram results are pending Laboratory Results Hemoglobin A1c Test 12/24/17 20:26 Range/Units Estimated Average Glucose 131 mg/dl Hemoglobin A1c 6.2 H 4.5-5.6 % Lipid Panel Test 12/25/17 05:30 Range/Units Triglycerides Level 74 0-150 mg/dl Cholesterol Level 143 0-200 mg/dl HDL Cholesterol 35 mg/dl Cholesterol/HDL Ratio 4.1 LDL Cholesterol, Calculated 93 mg/dl Medical Emergencies . Who to Call and When: Medical Emergencies: If at any time you feel your situation is an emergency, please call 911 immediately. . Non-Emergent Contact Non-Emergency issues call your: Primary Care Provider Call Non-Emergent contact if: you have any medication questions (or if symptoms return) . . "Provider Documentation" section prepared by Bulmaro Pitts. .
[2017-12-25] MEDS ORDERED: PANT40TA PO ×2 (14:52)
[2017-12-25 15:09] VITALS: BP 118/65; PULSE 66; TEMP 36.7; O2SAT 97
--- NOTE | 2017-12-25 15:31 | Pharmacy Progress Note ---
Pharmacist Stroke Counseling Date of Service Dec 25, 2017. Scope Pharmacy has been consulted to provide medication discharge counseling for this patient admitted with ischemic stroke/hemorrhagic stroke/ transient ischemic attack as per the Pharmacist Discharge Counseling for Stroke Patients Protocol. Medications on Discharge New Medications: Pantoprazole Sodium (Protonix) 40 Mg Tab 1 TAB PO DAILY for 90 Days, #90 TAB 3 Refills Clopidogrel Bisulfate (Clopidogrel) 75 Mg Tab 75 MG PO QAM for 30 Days, #30 TAB 1 Refill Continued Medications: Amoxicillin (Amoxil) 500 Mg Cap 2000 MG PO DAILY PRN for PRIOR TO DENTAL APPT., #21 CAP Aspirin Enteric Coated (Ecotrin Or Generic *) 81 Mg Ectab 81 MG PO QAM, 0 Refills Cetirizine (Zyrtec) 10 Mg Tab 10 MG PO DAILY, TAB Ferrous Sulfate (Ferrous Sulfate) 325 Mg Tab 325 MG PO QAM Fluticasone Propionate (Nasal) (Flonase Allergy Relief) 50 Mcg/Act Spr 25 MCG KRISTEL QPM Latanoprost (Latanoprost) 37 Drops/2.5 Ml Soln 1 DROP OPR HS Lisinopril (Zestril) 5 Mg Tab 5 MG PO QAM, TAB Metoprolol Succinate (Metoprolol Succinate ER) 25 Mg Tabcr 25 MG PO QAM Discontinued Medications: Omeprazole (Prilosec) 20 Mg Capcr 2 TAB PO QAM, 0 Refills PT INSTRUCTED TO STOP MEDICATION PER DOCTOR Also specifically reviewed with patient to stop omeprazole and the drug-drug interaction between omeprazole and clopidogrel. Patient aware to begin pantoprazole, and that it will require a prescription. Reviewed how to take medications, what to do if patient misses a dose, and how to store medications at home. Patient also aware to stop aspirin after 3 months of duel antiplatelet therapy. Action The above medications, specifically ones for stroke treatment/prophylaxis, have been reviewed in detail with the patient and patient's prior to discharge. This includes indication, common adverse reactions, drug interactions, and medication administration. Medication counseling has been employed using the teach-back method to ensure understanding. Outcome The patient and patient's have demonstrated understanding of the medications. Please note, they are aware that the pharmacist will call them within 72 hours post-discharge to confirm that the appropriate medications are being taken and answer any further medication related questions the patient might have at that time. Contact information Individual to be contacted: Patient Phone number: [phone] Best time to call: anytime Thank you for allowing pharmacy to be involved in the care of this patient. Please call [phone] or [phone] with any additional questions
[2017-12-25] MEDS ORDERED: LATANOPROST 0.005% OP SOLN 2.5 ML BTL OPR SCH (21:00)
--- NOTE | 2017-12-25 21:02 | ECHOCARDIOGRAM REPORT ---
*NOTICE TO RECEIVING LIBERTARIAN AGENCY This information is strictly Confidential and protected under [place] law. [place] law prohibits you from making any further disclosure of this information unless further disclosure is expressly permitted by the written consent of the person to whom it pertains or is authorized by law. A general authorization for the release of medical or other information is not sufficient for this purpose. Hospital accepts no responsibility if the information is made available to any other person, INCLUDING THE PATIENT. Interpretation Summary * Name: LA HOLT Study Date: 12/25/2017 01:28 PM BP: 118/65 mmHg * Patient Location: [facility]\S\[id number]\1 HR: 66 * : 1935 (M/d/yyyy) Gender: Male Height: 67 in * Age: 82 yrs Ethnicity: [place] Weight: 187 lb * Ordering Physician: Sonu Quijano * Referring Physician: Self, Referred * Performed By: Kiera Haddad RDCS * * Reason For Study: CVA * BSA: 2.0 m2 * -- Conclusions -- * There is moderate concentric left ventricular hypertrophy. * Left ventricular systolic function is normal. * The left atrium is moderately dilated. * The right atrium is mildly dilated. * The transaortic gradients are slightly elevated. * There is moderate to severe aortic regurgitation. Unclear if this is perivalvular from the images obtained. * There is mild mitral regurgitation. * Right ventricular systolic pressure is normal. Procedure Details * A complete two-dimensional transthoracic echocardiogram was performed (2D, M-mode, Doppler and color flow Doppler). * A saline contrast injection was performed to assess for cardiac shunting. * The injection was performed through an intravenous line in the left arm. * The attending nurse who injected the saline contrast was Marcia Munoz RN. * A total of 10 cc of agitated saline was given. Left Ventricle * The left ventricle is normal in size. * There is moderate concentric left ventricular hypertrophy. * Ejection Fraction = 55-60%. * Left ventricular systolic function is normal. * Septal motion is consistent with conduction abnormality. Right Ventricle * The right ventricle is normal in size and function. * The right ventricular systolic function is normal as assessed by tricuspid annular plane systolic excursion (TAPSE) (normal >1.5 cm). Atria * The left atrium is moderately dilated. * The right atrium is mildly dilated. * Contrast study consistent with pulmonary shunting and possible pulmonary AVM. Cannot exclude PFO Mitral Valve * The mitral valve is grossly normal. * There is mild mitral regurgitation. Tricuspid Valve * The tricuspid valve is not well visualized, but is grossly normal. * There is mild tricuspid regurgitation. * Right ventricular systolic pressure is normal. Aortic Valve * There is moderate to severe aortic regurgitation. Unclear if this is perivalvular from the images obtained. * There is a bioprosthetic aortic valve. * The transaortic gradients are slightly elevated. Great Vessels * The aortic root is normal size. Pericardium/Pleural * There is no pericardial effusion. MMode 2D Measurements and Calculations IVSd 1.3 cm IVSs 1.7 cm LVIDd 4.8 cm LVIDs 3.1 cm LVPWd 1.6 cm LVPWs 1.9 cm IVS/LVPW 0.83 FS 35.1 % EDV(Teich) 108.6 ml ESV(Teich) 38.8 ml EF(Teich) 64.3 % EDV(cubed) 112.0 ml ESV(cubed) 30.7 ml EF(cubed) 72.6 % % IVS thick 27.2 % % LVPW thick 20.3 % LV mass(C)d 286.4 grams LV mass(C)dI 145.8 grams/m\S\2 LV mass(C)s 222.9 grams LV mass(C)sI 113.4 grams/m\S\2 SV(Teich) 69.8 ml SI(Teich) 35.5 ml/m\S\2 SV(cubed) 81.3 ml SI(cubed) 41.4 ml/m\S\2 Ao root diam 2.6 cm Ao root area 5.2 cm\S\2 ACS 1.6 cm LA dimension 4.5 cm LA/Ao 1.8 LVAd ap4 42.2 cm\S\2 LVLd ap4 9.8 cm EDV(MOD-sp4) 153.4 ml EDV(sp4-el) 153.5 ml LVAs ap4 22.9 cm\S\2 LVLs ap4 8.5 cm ESV(MOD-sp4) 57.6 ml ESV(sp4-el) 52.5 ml EF(MOD-sp4) 62.5 % EF(sp4-el) 65.8 % LVAd ap2 38.7 cm\S\2 LVLd ap2 9.9 cm EDV(MOD-sp2) 135.0 ml EDV(sp2-el) 128.8 ml LVAs ap2 21.1 cm\S\2 LVLs ap2 8.6 cm ESV(MOD-sp2) 45.9 ml ESV(sp2-el) 43.6 ml EF(MOD-sp2) 66.0 % EF(sp2-el) 66.1 % LVLd %diff 0.42 % EDV(MOD-bp) 143.1 ml LVLs %diff 1.6 % ESV(MOD-bp) 51.6 ml EF(MOD-bp) 64.0 % SV(MOD-sp4) 95.9 ml SI(MOD-sp4) 48.8 ml/m\S\2 SV(MOD-sp2) 89.1 ml SI(MOD-sp2) 45.3 ml/m\S\2 SV(MOD-bp) 91.6 ml SI(MOD-bp) 46.6 ml/m\S\2 SV(sp4-el) 101.0 ml SI(sp4-el) 51.4 ml/m\S\2 SV(sp2-el) 85.2 ml SI(sp2-el) 43.3 ml/m\S\2 Doppler Measurements and Calculations MV E max seamus 108.2 cm/sec MV A max seamus 99.9 cm/sec MV E/A 1.1 MV dec time 0.24 sec Ao V2 max 339.5 cm/sec Ao max PG 46.1 mmHg Ao max PG (full) 37.3 mmHg Ao V2 mean 208.3 cm/sec Ao mean PG 20.0 mmHg Ao mean PG (full) 15.3 mmHg Ao V2 VTI 69.4 cm AI max seamus 475.7 cm/sec AI max PG 90.5 mmHg AI dec slope 244.0 cm/sec\S\2 AI P1/2t 570.9 msec LV V1 max PG 8.8 mmHg LV V1 mean PG 4.7 mmHg LV V1 max 148.7 cm/sec LV V1 mean 102.2 cm/sec LV V1 VTI 32.6 cm SV(Ao) 362.6 ml SI(Ao) 184.5 ml/m\S\2 PA V2 max 170.0 cm/sec PA max PG 11.6 mmHg PI max seamus 184.9 cm/sec PI max PG 13.7 mmHg PI dec slope 229.2 cm/sec\S\2 PI P1/2t 236.3 msec TR max seamus 226.6 cm/sec
--- NOTE | 2017-12-28 14:24 | Pharmacy Progress Note ---
Pharmacist Post D/C Phone Note Date of phone call: Dec 28, 2017. This phone call was made by an [employer] [facility] student services director, Jose L Velasquez, with myself available for questions. Individual with whom pharmacist student spoke to: Patient The following questions were reviewed during the phone call with responses listed below each: Can you tell me the medications that you are currently taking as well as when and how you take each medication? - Medications Dose Route/Sig Max Daily Dose Days Date Category Protonix (Pantoprazole Sodium) 40 Mg Tab 1 Tab PO DAILY 90 12/25/17 Rx Clopidogrel (Clopidogrel Bisulfate) 75 Mg Tab 75 Mg PO QAM 30 12/25/17 Rx Latanoprost 37 Drops/2.5 Ml Soln 1 Drop OPR HS 12/24/17 Reported Metoprolol Succinate ER (Metoprolol Succinate) 25 Mg Tabcr 25 Mg PO QAM 12/24/17 Reported Ferrous Sulfate 325 Mg Tab 325 Mg PO QAM 12/24/17 Reported Zyrtec (Cetirizine HCl) 10 Mg Tab 10 Mg PO DAILY 12/24/17 Reported Amoxil (Amoxicillin) 500 Mg Cap 2,000 Mg PO DAILY PRN 07/12/15 Reported Flonase Allergy Relief (Fluticasone Propionate (Nasal)) 50 Mcg/Act Spr 25 Mcg KRISTEL QPM 07/08/15 Reported Zestril (Lisinopril) 5 Mg Tab 5 Mg PO QAM 12/21/13 Reported Ecotrin Or Generic * (Aspirin) 81 Mg Ectab 81 Mg PO QAM 02/24/11 Reported When have you missed any doses of your medications? - Have not missed What side effects are you having from your medications? - Noticing some easier bruising after bumping into things but counseled to monitor closely for increased incidence or worsening - Drowsy at times What questions do you have about your medications? - Per Google, he found that metoprolol and clopidogrel have an interaction. Was told that there is no interaction between these two medications. - Also questioned why he needs to take lisinopril, metoprolol, clopidogrel. He was told these do not make him feel better but are just as important to take to prevent complications. What problems are you having obtaining your medications? - None When is your next appointment with your primary care doctor? - End of this week w/ TRACY Escalona Additional comments: - Confirmed with the patient that he no longer has omeprazole and is taking the pantoprazole - Patient is very active in his care and had plenty of questions As per the Pharmacist Discharge Counseling for Stroke Patients Protocol, this phone call has been completed within 72 hours of discharge. Thank you for allowing us to be involved in the care of this patient.
--- NOTE | 2018-01-01 11:06 | Discharge Summary ---
Discharge Summary Date of Service Dec 25, 2017. Discharge Summary Admission Date: Dec 24, 2017 at 21:30 Discharge Date: Dec 25, 2017 Discharge Disposition: Home Principal Diagnosis: TIA Consultations: Neurology Medication Reconciliation New Medications: Pantoprazole Sodium (Protonix) 40 Mg Tab 1 TAB PO DAILY for 90 Days, #90 TAB 3 Refills Clopidogrel Bisulfate (Clopidogrel) 75 Mg Tab 75 MG PO QAM for 30 Days, #30 TAB 1 Refill Continued Medications: Amoxicillin (Amoxil) 500 Mg Cap 2000 MG PO DAILY PRN for PRIOR TO DENTAL APPT., #21 CAP Aspirin Enteric Coated (Ecotrin Or Generic *) 81 Mg Ectab 81 MG PO QAM, 0 Refills Cetirizine (Zyrtec) 10 Mg Tab 10 MG PO DAILY, TAB Ferrous Sulfate (Ferrous Sulfate) 325 Mg Tab 325 MG PO QAM Fluticasone Propionate (Nasal) (Flonase Allergy Relief) 50 Mcg/Act Spr 25 MCG KRISTEL QPM Latanoprost (Latanoprost) 37 Drops/2.5 Ml Soln 1 DROP OPR HS Lisinopril (Zestril) 5 Mg Tab 5 MG PO QAM, TAB Metoprolol Succinate (Metoprolol Succinate ER) 25 Mg Tabcr 25 MG PO QAM Discontinued Medications: Omeprazole (Prilosec) 20 Mg Capcr 2 TAB PO QAM, 0 Refills PT INSTRUCTED TO STOP MEDICATION PER DOCTOR Discharge Exam Physical Examination General Appearance: WD/WN, no apparent distress Head: normocephalic Eyes: normal inspection ENT: normal ENT inspection, pharynx normal Neck: supple, no JVD Respiratory/Chest: chest non-tender, lungs clear, normal breath sounds Cardiovascular: regular rate, rhythm, no edema, no gallop, + systolic murmur Abdomen/GI: normal bowel sounds, non tender, soft Back: normal inspection, no CVA tenderness Extremities/Musculoskelatal: normal inspection, no calf tenderness, normal capillary refill 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 Presents with acute onset of expressive aphasia. He states that while he was unable to speak, he could clearly comprehend others. The pt states that he has some chronic numbness in his L extremities distally and impaired L dorsiflexion which are chronic and related to nerve entrapment per pt. He denies CP, SOB, fevers. He denies acute unilateral weakness or sensory loss and denies a headache or visual disturbances. He has gradually regained his speech. 1) CVA/TIA Patient no longer symptomatic 1. Acute onset expressive aphasia December 24 resolved by 1-2 hours. MRI is not compatible. will continue ASA and plavix This is most consistent with a TIA since he does not have any neurologic deficits currently and is any ache stroke scale is 0 (the very mild left foot weakness and numbness is consistent with his old left L5 radiculopathy). 2. Left foot weakness and numbness. This is consistent with his left L5 radiculopathy, noted by EMG in July of 2017. This is actually improved with director of home care hospice and exercising. 3. Generalized polyneuropathy of uncertain etiology seen by EMG July 2017. This is stable. 2) HTN - meds held as above - he is normotensive on admission so it may be reasonable to cont his B rafael. 3) HPL - pt is statin intolerant 4) AVR - Moderate to severe aortic regurgitation noted. Total Time Spent: Greater than 30 minutes This includes examination of the patient, discharge planning, medication reconciliation, and communication with other providers. Discharge Instructions Please refer to the electronic Patient Visit Report (Discharge Instructions) for additional information. Follow-Up As per discharge instruction
== END 2017-12-25 15:45 | disposition home or self-care (01) ==
LOC: C.EDB 19:38 → C.MED 21:30 → ENRESERV 21:41
PROVIDERS: ADMIT Internal Medicine; ATTEND Internal Medicine
DX: G45.9 Transient cerebral ischemic attack, unspecified (principal); R47.01 Aphasia; I25.10 Atherosclerotic heart disease of native coronary artery without angina pectoris; I42.9 Cardiomyopathy, unspecified; E78.5 Hyperlipidemia, unspecified; G62.9 Polyneuropathy, unspecified; M54.16 Radiculopathy, lumbar region; I10 Essential (primary) hypertension; Z79.82 Long term (current) use of aspirin; Z95.2 Presence of prosthetic heart valve; Z95.0 Presence of cardiac pacemaker; Z85.46 Personal history of malignant neoplasm of prostate; Z86.73 Personal history of transient ischemic attack (TIA), and cerebral infarction without residual deficits; Z88.8 Allergy status to other drugs, medicaments and biological substances; Z85.828 Personal history of other malignant neoplasm of skin; Z83.3 Family history of diabetes mellitus; Z82.49 Family history of ischemic heart disease and other diseases of the circulatory system

== ENCOUNTER → 2017-12-28 | Outpatient (CLI) | payer BC ==
[~2017-12-28] MED LIST changes: +CETI10TA84 PO; +FRRS300 PO; +PANT40TA PO; +PLV75 PO; +TPRSR/25 PO; +XLTOPS OPR
== END | disposition home or self-care (01) ==
LOC: C.LAB1850 16:24
PROVIDERS: ATTEND Physician Assistant Medical
DX: G47.61 Periodic limb movement disorder (principal)

== ENCOUNTER → 2018-02-18 | Outpatient (CLI) | payer BC ==
[~2018-02-18] MED LIST changes: -ALLDSR/24 PO; -IBUP-1450 PO; -PRLSR20 PO
== END | disposition home or self-care (01) ==
LOC: C.LAB1850 14:31
PROVIDERS: ATTEND Physician Assistant Medical
DX: G47.61 Periodic limb movement disorder (principal)

== ENCOUNTER → 2018-05-18 | Outpatient (CLI) | payer BC | END | disposition home or self-care (01) | LOC: C.LAB1850 12:38 | PROVIDERS: ATTEND Urology | DX: N40.0 Benign prostatic hyperplasia without lower urinary tract symptoms (principal); R39.9 Unspecified symptoms and signs involving the genitourinary system ==